=== PATIENT | female | born 1950 | race Caucasian/White ===

== ENCOUNTER → 2019-08-25 | Outpatient (CLI) | payer MEDICARE, OTHER | END | disposition home or self-care (01) | LOC: PLD 14:24 → LAB SHORT 14:24 | DX: C44.1122 Basal cell carcinoma of skin of right lower eyelid, including canthus (principal); L97.819 Non-pressure chronic ulcer of other part of right lower leg with unspecified severity | CPT/HCPCS: 88305; 88312; 88313 ==

== ENCOUNTER → 2019-08-28 | Outpatient (CLI) | payer MEDICARE, OTHER ==
[2019-08-30 09:28] LABS: Stool Occult Bld Immuno 1 Negative (NEGATIVE); Stool Occult Bld Immuno 2 Positive (NEGATIVE); Stool Occult Bld Immuno 3 Negative (NEGATIVE)
== END | disposition home or self-care (01) ==
LOC: LAB EV 15:35
PROVIDERS: Physician Assistant
DX: Z12.11 Encounter for screening for malignant neoplasm of colon (principal); Z12.12 Encounter for screening for malignant neoplasm of rectum
CPT/HCPCS: G0328

== ENCOUNTER 2019-09-15 14:04 | Emergency (ER) | payer MEDICARE, OTHER ==
[~2019-09-15] VITALS: Ht 162.6 cm; Wt 91.6 kg
== END 2019-09-15 14:54 | disposition home or self-care (01) ==
LOC: ER 14:04
DX: S01.01XA Laceration without foreign body of scalp, initial encounter (principal); W22.8XXA Striking against or struck by other objects, initial encounter; Z88.2 Allergy status to sulfonamides
CPT/HCPCS: 12001; 99283-25

== ENCOUNTER 2019-11-24 20:15 | Emergency (ER) | payer MEDICARE, OTHER ==
[~2019-11-24] VITALS: Ht 162.6 cm; Wt 93.4 kg
[2019-11-24 21:09] LABS: Hematocrit 45.8 % (33.0-51.0); Hemoglobin 15.1 g/dL (11.5-16.0); Mean Corpuscular HGB 28.9 pg (26.0-34.0); Mean Corpuscular Volume 88 fL (80-100); Mean Platelet Volume 10.3 fL (9.1-12.4); Platelet Count 207 K/mm3 (150-400); RDW Coefficient Variation 13.1 % (11.7-14.2); RDW Standard Deviation 41.8 fL (35.1-46.3); Red Blood Cell Count 5.23 M/mm3 (3.80-5.20); White Blood Cell Count 8.72 K/mm3 (4.00-11.30)
[2019-11-24 21:27] LABS: Alanine Aminotransfer (ALT/SGP 35 U/L (12-78); Albumin, Blood 3.5 g/dL (3.4-5.0); Albumin/Globulin Ratio 0.9 (0.8-1.8); Alk Phos 102 U/L (50-136); Anion Gap 7 mmol/L (6-16); Aspartate Aminotrans (AST/SGOT 28 U/L (12-37); Bilirubin, Total 0.2 mg/dL (0.1-1.0); Blood Urea Nitrogen 25 mg/dL (8-24); Bun/Creatinine Ratio 37.5 (12.0-20.0); CO2, Blood 26 mmol/L (21-32); Calcium, Blood 9.1 mg/dL (8.5-10.1); Chloride, Blood 108 mmol/L (98-108); Creatinine, Blood 0.67 mg/dL (0.40-1.00); Globulin, Blood 3.7 g/dL (2.2-4.0); Glomerular Filtration Rate >60 (60-); Glucose, Blood 88 mg/dL (70-99); Potassium, Blood 3.7 mmol/L (3.5-5.5); Sodium, Blood 141 mmol/L (136-145); Total Protein, Blood 7.2 g/dL (6.4-8.2)
[2019-11-24 21:33] LABS: BAND PERCENT MAN 1 % (0-8); BASOPHILS PERCENT MAN 0 % (0-2); EOSINOPHILS ABSOLUTE MAN 0.08 K/mm3 (0.00-0.68); EOSINOPHILS PERCENT MAN 1 % (0-6); LYMPHOCYTES ABSOLUTE MAN 3.05 K/mm3 (0.84-5.20); LYMPHOCYTES PERCENT MAN 35 % (21-46); MONOCYTES ABSOLUTE MAN 0.52 K/mm3 (0.16-1.47); MONOCYTES PERCENT MAN 6 % (4-13); NEUTROPHILS ABSOLUTE MAN 4.97 K/mm3 (1.96-9.15); OTHER CELL PERCENT MAN 1 % (0-0); SEG NEUTROPHILS PERCENT MAN 56 % (41-73); TOTAL CELLS COUNTED 100
[2019-11-24] MEDS ORDERED: CEFP200 PO (22:54)
== END 2019-11-24 23:06 | disposition home or self-care (01) ==
LOC: ER 20:15
PROVIDERS: Emergency Medicine
DX: L03.116 Cellulitis of left lower limb (principal); L03.115 Cellulitis of right lower limb
CPT/HCPCS: 36415; 80053; 85025; 99283; A9270-GY

== ENCOUNTER 2025-01-10 02:19 | Inpatient (IN) | payer MEDICARE ==
[~2025-01-10] VITALS: Ht 157.5 cm; Wt 81.9 kg
[~2025-01-10 02:19] MED LIST: CEFP200 PO
[2025-01-10 02:59] LABS: BASOPHILS ABSOLUTE AUTO 0.06 K/mm3 (0.00-0.23); BASOPHILS PERCENT AUTO 0 % (0-2); EOSINOPHILS ABSOLUTE AUTO 0.16 K/mm3 (0.00-0.68); EOSINOPHILS PERCENT AUTO 1 % (0-6); Hematocrit 48.9 % (33.0-51.0); Hemoglobin 16.5 g/dL (11.5-16.0); IMMATURE GRAN ABSOLUTE AUTO 0.12 K/mm3 (0.00-0.10); IMMATURE GRAN PERCENT AUTO 1 % (0-1); LYMPHOCYTES PERCENT AUTO 24 % (21-46); MONOCYTES ABSOLUTE AUTO 1.28 K/mm3 (0.16-1.47); MONOCYTES PERCENT AUTO 8 % (4-13); Mean Corpuscular HGB 28.9 pg (26.0-34.0); Mean Corpuscular HGB Conc 33.7 g/dL (31.5-36.5); Mean Corpuscular Volume 86 fL (80-100); Mean Platelet Volume 10.7 fL (9.1-12.4); NEUTROPHILS ABSOLUTE AUTO 10.43 K/mm3 (1.96-9.15); NEUTROPHILS PERCENT AUTO 66 % (41-73); Platelet Count 228 K/mm3 (150-400); RDW Coefficient Variation 14.2 % (11.7-14.2); RDW Standard Deviation 44.2 fL (35.1-46.3); White Blood Cell Count 15.85 K/mm3 (4.00-11.30)
[2025-01-10] MEDS ORDERED: Ondansetron HCl 2 MG / ML 2ML Vial IV ONE (03:05)
[2025-01-10] MEDS ORDERED: NS 1,000 ML IV SCH ×3 (03:35→17:00)
[2025-01-10] MEDS ORDERED: FentaNYL Citrate 50 MCG/ML 2 ML Injection IV ONE ×2 (03:35→19:30)
[2025-01-10 04:26] LABS: Alanine Aminotransfer (ALT/SGP 706 U/L (12-78); Albumin, Blood 3.6 g/dL (3.4-5.0); Albumin/Globulin Ratio 1.1 (0.8-1.8); Alk Phos 508 U/L (50-136); Anion Gap 13 mmol/L (3-11); Aspartate Aminotrans (AST/SGOT 359 U/L (12-37); Bilirubin, Total 4.8 mg/dL (0.1-1.0); Blood Urea Nitrogen 9 mg/dL (8-24); Bun/Creatinine Ratio 13.2 (12.0-20.0); CO2, Blood 21 mmol/L (21-32); Calcium, Blood 9.4 mg/dL (8.5-10.1); Chloride, Blood 110 mmol/L (98-108); Creatinine, Blood 0.68 mg/dL (0.40-1.00); Globulin, Blood 3.4 g/dL (2.2-4.0); Glomerular Filtration Rate 91 (60-); Glucose, Blood 136 mg/dL (70-99); Sodium, Blood 140 mmol/L (136-145)
[2025-01-10 04:37] LABS: Source, Urine Clean Catch
[2025-01-10 05:05] LABS: Appearance, Urine Clear (Clear); Bilirubin, Urine Neg (Neg); Blood, Urine Neg (Neg); Color, Urine Yellow (P-Yellow); Glucose Qualitative, Urine Neg (Neg); Ketones, Urine Neg (Neg); Leukocyte Esterase, Urine Neg (Neg); Nitrite, Urine Neg (Neg); Protein, Urine Neg (Neg); Urobilinogen, Urine NORM (Normal); pH, Urine 6.5 (5.0-8.0)
[2025-01-10] MEDS ORDERED: Morphine Sulfate 4 MG/1 ML Injection IV ONE ×2 (05:25→06:50)
[2025-01-10] MEDS ORDERED: Piperacillin/Tazobactam Sod 4.5 GM in NS 100 ML IV ONE (06:40)
[2025-01-10] MEDS ORDERED: HYDROmorphone HCl/Pf 1MG SYR IV ONE (09:05)
[2025-01-10] MEDS ORDERED: LORazepam 2 MG/ML 1ML Injection IV ONE (09:30)
[2025-01-10] MEDS ORDERED: LORazepam 2 MG/ML 1ML Injection ONE (12:43)
[2025-01-10] MEDS ORDERED: Piperacillin/Tazobactam Sod 2.25 GM in NS 50 ML IV ONE (14:40)
[2025-01-10 14:56] LABS: BASOPHILS ABSOLUTE AUTO 0.03 K/mm3 (0.00-0.23); BASOPHILS PERCENT AUTO 0 % (0-2); EOSINOPHILS ABSOLUTE AUTO 0.07 K/mm3 (0.00-0.68); EOSINOPHILS PERCENT AUTO 1 % (0-6); Hematocrit 45.9 % (33.0-51.0); Hemoglobin 15.2 g/dL (11.5-16.0); IMMATURE GRAN ABSOLUTE AUTO 0.07 K/mm3 (0.00-0.10); IMMATURE GRAN PERCENT AUTO 1 % (0-1); LYMPHOCYTES ABSOLUTE AUTO 2.05 K/mm3 (0.84-5.20); LYMPHOCYTES PERCENT AUTO 15 % (21-46); MONOCYTES ABSOLUTE AUTO 0.88 K/mm3 (0.16-1.47); MONOCYTES PERCENT AUTO 7 % (4-13); Mean Corpuscular HGB 29.3 pg (26.0-34.0); Mean Corpuscular HGB Conc 33.1 g/dL (31.5-36.5); Mean Corpuscular Volume 88 fL (80-100); NEUTROPHILS PERCENT AUTO 77 % (41-73); Platelet Count 203 K/mm3 (150-400); RDW Coefficient Variation 14.4 % (11.7-14.2); RDW Standard Deviation 46.8 fL (35.1-46.3); Red Blood Cell Count 5.19 M/mm3 (3.80-5.20)
[2025-01-10 15:20] LABS: Albumin, Blood 3.1 g/dL (3.4-5.0); Albumin/Globulin Ratio 0.9 (0.8-1.8); Bilirubin, Total 1.8 mg/dL (0.1-1.0); Calcium, Blood 8.8 mg/dL (8.5-10.1); Creatinine, Blood 0.75 mg/dL (0.40-1.00); Globulin, Blood 3.3 g/dL (2.2-4.0); Potassium, Blood 4.1 mmol/L (3.5-5.5); Total Protein, Blood 6.4 g/dL (6.4-8.2)
[2025-01-10] MEDS ORDERED: OxyCODONE HCL 5 MG TAB PO PRN (15:40)
[2025-01-10] MEDS ORDERED: FLU VACC TS2024-25(6MOS UP)/PF 45 MCG/0.5 ML SYRINGE IM ONE (15:40)
[2025-01-10] MEDS ORDERED: FentaNYL Citrate 50 MCG/ML 2 ML Injection IV PRN ×2 (15:40→19:30)
[2025-01-10 19:14] VITALS: BP 146/77
--- NOTE | 2025-01-11 04:44 | NUR ---
NOC SHIFT SUMMARY- PT PAIN MANAGED WELL PER JAN. PT HAS REMAINED NPO THROUGHOUT SHIFT. PT IS WALKING TO BATHROOM TO VOID. NO EVENTS REPORTED BY TEA ROOM MANAGER. CALL LIGHT IN REACH.
[2025-01-11 04:54] VITALS: BP 146/72
[2025-01-11 05:12] LABS: BASOPHILS ABSOLUTE AUTO 0.03 K/mm3 (0.00-0.23); BASOPHILS PERCENT AUTO 0 % (0-2); EOSINOPHILS ABSOLUTE AUTO 0.06 K/mm3 (0.00-0.68); EOSINOPHILS PERCENT AUTO 0 % (0-6); Hematocrit 43.1 % (33.0-51.0); Hemoglobin 13.8 g/dL (11.5-16.0); IMMATURE GRAN ABSOLUTE AUTO 0.08 K/mm3 (0.00-0.10); IMMATURE GRAN PERCENT AUTO 1 % (0-1); LYMPHOCYTES ABSOLUTE AUTO 1.41 K/mm3 (0.84-5.20); LYMPHOCYTES PERCENT AUTO 10 % (21-46); MONOCYTES ABSOLUTE AUTO 0.79 K/mm3 (0.16-1.47); MONOCYTES PERCENT AUTO 6 % (4-13); Mean Corpuscular HGB 28.9 pg (26.0-34.0); Mean Corpuscular Volume 90 fL (80-100); Mean Platelet Volume 11.1 fL (9.1-12.4); NEUTROPHILS ABSOLUTE AUTO 11.51 K/mm3 (1.96-9.15); NEUTROPHILS PERCENT AUTO 83 % (41-73); Platelet Count 158 K/mm3 (150-400); RDW Coefficient Variation 14.1 % (11.7-14.2); RDW Standard Deviation 47.3 fL (35.1-46.3); Red Blood Cell Count 4.78 M/mm3 (3.80-5.20); White Blood Cell Count 13.88 K/mm3 (4.00-11.30)
[2025-01-11 05:52] LABS: Albumin, Blood 2.8 g/dL (3.4-5.0); Albumin/Globulin Ratio 0.9 (0.8-1.8); Bilirubin, Total 1.4 mg/dL (0.1-1.0); Bun/Creatinine Ratio 12.6 (12.0-20.0); Calcium, Blood 8.3 mg/dL (8.5-10.1); Creatinine, Blood 0.63 mg/dL (0.40-1.00); Globulin, Blood 3.2 g/dL (2.2-4.0); Potassium, Blood 3.6 mmol/L (3.5-5.5)
[2025-01-11 07:15] VITALS: BP 138/69
[2025-01-11] MEDS ORDERED: Enoxaparin 40 MG/0.4 ML SYR SC SCH (09:00)
[2025-01-11] MEDS ORDERED: Piperacillin/Tazobactam Sod 3.375 GM in NS 100 ML IV SCH (11:30)
[2025-01-11 13:20] VITALS: BP 137/67
[2025-01-11 15:57] VITALS: BP 137/68
[2025-01-11] MEDS ORDERED: NS 1,000 ML IV SCH (17:05)
--- NOTE | 2025-01-11 18:18 | NUR ---
SUMMARY NO ACUTE CHANGES TO SHIFT. PT MEDICATED T/O DAY FOR ABDOMINAL PAIN PER ORDERS. CBG THIS EVENING 69, GAVE APPLEJUICE AND NOTIFIED DR CABELLO. PT SIPPING JUICE AT THIS TIME, ADVANCED TO CLEAR LIQUID DIET. CALL LIGHT IN REACH, FAMILY BEDSIDE.
[2025-01-11 19:29] VITALS: BP 140/63
[2025-01-11 23:20] VITALS: BP 126/62
[2025-01-12 03:41] VITALS: BP 130/62
--- NOTE | 2025-01-12 04:11 | NUR ---
NOC SUMMARY- PT PAIN MANAGED WELL. PT ABLE TO SLEEP. PT TOLERATING CLD. PT UP TO BATHROOM TO VOID. NO BM NOTED THIS SHIFT. CALL LIGHT IN REACH.
[2025-01-12 05:32] LABS: BASOPHILS ABSOLUTE AUTO 0.03 K/mm3 (0.00-0.23); BASOPHILS PERCENT AUTO 0 % (0-2); EOSINOPHILS ABSOLUTE AUTO 0.12 K/mm3 (0.00-0.68); EOSINOPHILS PERCENT AUTO 1 % (0-6); Hematocrit 36.4 % (33.0-51.0); Hemoglobin 12.2 g/dL (11.5-16.0); IMMATURE GRAN ABSOLUTE AUTO 0.12 K/mm3 (0.00-0.10); IMMATURE GRAN PERCENT AUTO 1 % (0-1); LYMPHOCYTES ABSOLUTE AUTO 1.27 K/mm3 (0.84-5.20); LYMPHOCYTES PERCENT AUTO 8 % (21-46); MONOCYTES ABSOLUTE AUTO 0.81 K/mm3 (0.16-1.47); MONOCYTES PERCENT AUTO 5 % (4-13); Mean Corpuscular HGB 29.5 pg (26.0-34.0); Mean Corpuscular HGB Conc 33.5 g/dL (31.5-36.5); Mean Corpuscular Volume 88 fL (80-100); Mean Platelet Volume 11.3 fL (9.1-12.4); NEUTROPHILS ABSOLUTE AUTO 12.78 K/mm3 (1.96-9.15); NEUTROPHILS PERCENT AUTO 84 % (41-73); Platelet Count 139 K/mm3 (150-400); RDW Coefficient Variation 13.6 % (11.7-14.2); RDW Standard Deviation 44.6 fL (35.1-46.3); Red Blood Cell Count 4.13 M/mm3 (3.80-5.20); White Blood Cell Count 15.13 K/mm3 (4.00-11.30)
[2025-01-12 06:22] LABS: Albumin, Blood 2.4 g/dL (3.4-5.0); Albumin/Globulin Ratio 0.8 (0.8-1.8); Bilirubin, Total 1.4 mg/dL (0.1-1.0); Bun/Creatinine Ratio 14.5 (12.0-20.0); Creatinine, Blood 0.55 mg/dL (0.40-1.00); Globulin, Blood 3.1 g/dL (2.2-4.0); Potassium, Blood 3.2 mmol/L (3.5-5.5); Total Protein, Blood 5.5 g/dL (6.4-8.2)
[2025-01-12 07:19] VITALS: BP 120/64
[2025-01-12 10:29] VITALS: BP 129/67
[2025-01-12] MEDS ORDERED: LATA.005SO BOTHEYES (12:37)
[2025-01-12] MEDS ORDERED: Potassium Chloride 20 MEQ in NS 90 ML IV ONE (12:50)
--- NOTE | 2025-01-12 15:06 | NUR ---
PTS PAIN MANAGED WELL PER MAR. PT IS ON A CLEAR LIQUID DIET. BLOOD SUGARS HAVE BEEN WITHIN NORMAL RANGE AFTER BEING TAKEN OFF NPO. PT AMBULATES TO RESTROOM TO VOID WITH STANDBYE ASSISTANCE. PT DID SAY HER IV WAS BURNING, SO WE SLOWED THE INFUSION OF K+. SEARCHING FOR OUTSIDE HOSPITALS TO TRANSFER PT TO IN ORDER TO HAVE THE ERCP PROCEDURE DONE BY A OFFICE PROFESSIONALS. CALL LIGHT WITHIN REACH.
[2025-01-12 16:56] VITALS: BP 133/62
--- NOTE | 2025-01-12 17:29 | NUR ---
SUMMARY NO ACUTE CHANGES T/O SHIFT. MEDICATED PT PER ORDERS FOR PAIN T/O DAY. PT HAS DENIED NAUSEA. TOLERATING SIPS OF CLEARS. AWAITING TRANSFER TO HIGHER LEVEL OF CARE FOR ERCP. FAMILY MEMBER BEDSIDE. CALL LIGHT IN REACH.
[2025-01-12 19:12] VITALS: BP 117/57
[2025-01-12] MEDS ORDERED: OxyCODONE HCL 5 MG TAB PO PRN (23:35)
[2025-01-12 23:56] VITALS: BP 127/62
[2025-01-13 02:58] VITALS: BP 147/70
[2025-01-13 04:24] LABS: BASOPHILS ABSOLUTE AUTO 0.03 K/mm3 (0.00-0.23); BASOPHILS PERCENT AUTO 0 % (0-2); EOSINOPHILS ABSOLUTE AUTO 0.15 K/mm3 (0.00-0.68); EOSINOPHILS PERCENT AUTO 1 % (0-6); Hematocrit 35.5 % (33.0-51.0); Hemoglobin 12.1 g/dL (11.5-16.0); IMMATURE GRAN ABSOLUTE AUTO 0.09 K/mm3 (0.00-0.10); IMMATURE GRAN PERCENT AUTO 1 % (0-1); LYMPHOCYTES PERCENT AUTO 13 % (21-46); MONOCYTES ABSOLUTE AUTO 0.78 K/mm3 (0.16-1.47); MONOCYTES PERCENT AUTO 7 % (4-13); Mean Corpuscular HGB 29.6 pg (26.0-34.0); Mean Corpuscular HGB Conc 34.1 g/dL (31.5-36.5); Mean Corpuscular Volume 87 fL (80-100); Mean Platelet Volume 10.6 fL (9.1-12.4); NEUTROPHILS ABSOLUTE AUTO 9.43 K/mm3 (1.96-9.15); NEUTROPHILS PERCENT AUTO 79 % (41-73); Platelet Count 134 K/mm3 (150-400); RDW Coefficient Variation 13.4 % (11.7-14.2); Red Blood Cell Count 4.09 M/mm3 (3.80-5.20); White Blood Cell Count 11.98 K/mm3 (4.00-11.30)
[2025-01-13 04:59] LABS: Albumin, Blood 2.2 g/dL (3.4-5.0); Albumin/Globulin Ratio 0.6 (0.8-1.8); Bilirubin, Total 1.1 mg/dL (0.1-1.0); Bun/Creatinine Ratio 11.1 (12.0-20.0); Calcium, Blood 8.5 mg/dL (8.5-10.1); Creatinine, Blood 0.54 mg/dL (0.40-1.00); Globulin, Blood 3.4 g/dL (2.2-4.0); Potassium, Blood 3.3 mmol/L (3.5-5.5); Total Protein, Blood 5.6 g/dL (6.4-8.2)
--- NOTE | 2025-01-13 05:56 | NUR ---
NOC SUMMARY- PAIN MANAGED WELL PER MAR. PT HAS BEEN ABLE TO REST THIS SHIFT. PT UP TO USE BATHROOM. PT TOLERATING CLD. PT CURRENTLY SLEEPING IN NO DISTRESS, PT TURNS SELF IN BED. CALL LIGHT IN REACH.
--- NOTE | 2025-01-13 06:39 | NUR ---
TRANSFER UPDATE: CALL PLACED TO [facility] FOR UPDATE ON BED AVAILABLITY. PER JHONATHAN, NO BEDS AVAILABLE. PT TO REMAIN ON TX LIST. [facility] CALLED, PT PLACED ON TX LIST, NO CURRENT BEDS AVAILABLE. TX CENTER TO CALL IF BED BECOMES AVAILABLE.
[2025-01-13 07:30] VITALS: BP 142/75
--- NOTE | 2025-01-13 10:57 | NUR ---
RECIEVED CALL FROM [place] CONFIRMING PT NEED FOR TX. TX COORDINATOR STATES STILL ANTICIPATING 48 HRS BUT IF PTS CONDITION CHANGES TO NOTIFY THEM.
[2025-01-13] MEDS ORDERED: Potassium Chloride 20 MEQ TabCR PO ONE (13:35)
--- NOTE | 2025-01-13 14:36 | NUR ---
PT C/O PAIN 05/27, PT EDUCATED ON ORAL VS IV PAIN MEDICATION. PT REQUESTING TO CONTINUE WITH IV PAIN MGMT AT THIS TIME. MEDICATED PER EMAR. PT ALSO FRUSTRATED THAT SHE WAS GIVEN CLEAR LIQUIDS FOR LUNCH RATHER THAN FULL. PT GIVEN CREAM OF WHEAT AND EDUCATED ON STARTING SLOW AND TO CALL IF ANY N/V. PT VERBALIZED UNDERSTANDING.
[2025-01-13 15:39] VITALS: BP 131/74
[2025-01-13 19:29] VITALS: BP 127/72
--- NOTE | 2025-01-13 19:38 | NUR ---
SUMMARY: NO ACUTE CHANGE TODAY. VSS, A/O. IV ANTIBIOTICS INFUSED, MEDICATED PER EMAR FOR PAIN. PT ABLE TO TOLERATE FULL LIQUIDS TONIGHT. NO ACUTE CONCERNS. STILL AWAITING BED PLACEMENT FOR ERCP. PT USES CALL LIGHT TO MAKE NEEDS KNOWN
--- NOTE | 2025-01-13 22:36 | NUR ---
[facility] CALLED TO CONFIRM PT [facility] ON TX LIST. NO BEDS CURRENTLY AVAILABLE.
[2025-01-14 04:05] VITALS: BP 143/76
[2025-01-14 05:22] LABS: BASOPHILS ABSOLUTE AUTO 0.03 K/mm3 (0.00-0.23); BASOPHILS PERCENT AUTO 0 % (0-2); EOSINOPHILS ABSOLUTE AUTO 0.17 K/mm3 (0.00-0.68); EOSINOPHILS PERCENT AUTO 2 % (0-6); Hematocrit 35.9 % (33.0-51.0); Hemoglobin 12.4 g/dL (11.5-16.0); IMMATURE GRAN ABSOLUTE AUTO 0.07 K/mm3 (0.00-0.10); IMMATURE GRAN PERCENT AUTO 1 % (0-1); LYMPHOCYTES ABSOLUTE AUTO 1.53 K/mm3 (0.84-5.20); LYMPHOCYTES PERCENT AUTO 15 % (21-46); MONOCYTES ABSOLUTE AUTO 0.69 K/mm3 (0.16-1.47); MONOCYTES PERCENT AUTO 7 % (4-13); Mean Corpuscular HGB 29.6 pg (26.0-34.0); Mean Corpuscular HGB Conc 34.5 g/dL (31.5-36.5); Mean Corpuscular Volume 86 fL (80-100); NEUTROPHILS ABSOLUTE AUTO 7.88 K/mm3 (1.96-9.15); NEUTROPHILS PERCENT AUTO 76 % (41-73); Platelet Count 169 K/mm3 (150-400); RDW Coefficient Variation 13.3 % (11.7-14.2); RDW Standard Deviation 41.8 fL (35.1-46.3); Red Blood Cell Count 4.19 M/mm3 (3.80-5.20); White Blood Cell Count 10.37 K/mm3 (4.00-11.30)
--- NOTE | 2025-01-14 05:26 | NUR ---
NOC SUMMARY- PT PAIN MANAGED WELL. PT HAS BEEN RESTING COMFORTABLY. PT WAS ABLE TO SLEEP THIS SHIFT. PT HAS BEEN VOIDING AND TOLERATING PO. PT DENIES ANY N/V. PT CURRENTLY SLEEPING IN NO DISCOMFORT. CALL LIGHT IN REACH.
[2025-01-14 05:51] LABS: Albumin, Blood 2.2 g/dL (3.4-5.0); Albumin/Globulin Ratio 0.6 (0.8-1.8); Bilirubin, Total 1.1 mg/dL (0.1-1.0); Bun/Creatinine Ratio 8.4 (12.0-20.0); Calcium, Blood 8.4 mg/dL (8.5-10.1); Creatinine, Blood 0.6 mg/dL (0.40-1.00); Globulin, Blood 3.4 g/dL (2.2-4.0); Potassium, Blood 3.3 mmol/L (3.5-5.5); Total Protein, Blood 5.6 g/dL (6.4-8.2)
[2025-01-14 07:11] VITALS: BP 144/74
[2025-01-14] MEDS ORDERED: Potassium Chloride 20 MEQ TabCR PO ONE (09:25)
[2025-01-14 14:29] VITALS: BP 123/59
--- NOTE | 2025-01-14 19:17 | NUR ---
SHIFT SUMMARY THIS RN ASSUMED CARE AT APPROX 0715. PATIENT ALERT AND ORIENTED X4. INDEPENDENT IN ROOM - AMBULATING IN HALLWAY. VSS. SBP 120s-140s. MAP >65. DENIES CHEST PAIN, PRESSURE. TELEMETRY SHOWING SINUS 70s PRIOR TO REMOVAL PER MD ORDER. ON ROOM AIR, SATs >90%. RR EVEN, UNLABORED. TOLERATING FULL LIQUID DIET. REPORTS FLATULENCE. X1 EPISODE OF LOOSE STOOL THIS EVENING. NPO AT MIDNIGHT FOR POSSIBLE CHOLECTOMY TOMORROW UNLESS PLACEMENT RECEIVED FOR ERCP. MANAGING PAIN PER EMAR. VOIDING. CALL LIGHT IN REACH.
[2025-01-14 19:39] VITALS: BP 142/91
[2025-01-15] VITALS (20 sets, daily range): BP systolic 91–160; BP diastolic 51–88
[2025-01-15] MEDS ORDERED: Ondansetron HCl 2 MG / ML 2ML Vial IV PRN (02:20)
--- NOTE | 2025-01-15 04:35 | NUR ---
SHIFT SUMMARY ALESSANDRO WAS ALERT AND FULLY ORIENTED ON ASSESMENT. PT C/O MODERATE PAIN TO ABD, AND ONE BOUT OF SIGNIFICANT NAUSEA WITHOUT VOMITING. MEDICATED PER EMAR. PT ABLE TO AMBULATE INDPENDENTLY. PT STATES THAT SHE HAD ONE BOUT OF DIARRHEA ON DAY SHIFT. PT KEPT NPO FROM MIDNIGHT. NO BED PLACEMENT FOR ERCP. POSSIBLE SURGERY ON DAYSHIFT. NO OTHER ACUTE EVENTS OR NOTED CHANGES TO PT CONDITION.
[2025-01-15 06:03] LABS: BASOPHILS ABSOLUTE AUTO 0.04 K/mm3 (0.00-0.23); BASOPHILS PERCENT AUTO 0 % (0-2); EOSINOPHILS ABSOLUTE AUTO 0.16 K/mm3 (0.00-0.68); EOSINOPHILS PERCENT AUTO 1 % (0-6); Hematocrit 38.8 % (33.0-51.0); Hemoglobin 13.4 g/dL (11.5-16.0); IMMATURE GRAN ABSOLUTE AUTO 0.09 K/mm3 (0.00-0.10); IMMATURE GRAN PERCENT AUTO 1 % (0-1); LYMPHOCYTES ABSOLUTE AUTO 1.58 K/mm3 (0.84-5.20); LYMPHOCYTES PERCENT AUTO 13 % (21-46); MONOCYTES ABSOLUTE AUTO 0.83 K/mm3 (0.16-1.47); MONOCYTES PERCENT AUTO 7 % (4-13); Mean Corpuscular HGB 29.5 pg (26.0-34.0); Mean Corpuscular HGB Conc 34.5 g/dL (31.5-36.5); Mean Corpuscular Volume 85 fL (80-100); NEUTROPHILS ABSOLUTE AUTO 9.06 K/mm3 (1.96-9.15); NEUTROPHILS PERCENT AUTO 77 % (41-73); Platelet Count 193 K/mm3 (150-400); RDW Coefficient Variation 13.2 % (11.7-14.2); RDW Standard Deviation 41.7 fL (35.1-46.3); Red Blood Cell Count 4.55 M/mm3 (3.80-5.20); White Blood Cell Count 11.76 K/mm3 (4.00-11.30)
[2025-01-15 07:01] LABS: Albumin, Blood 2.4 g/dL (3.4-5.0); Albumin/Globulin Ratio 0.6 (0.8-1.8); Bilirubin, Total 1.2 mg/dL (0.1-1.0); Bun/Creatinine Ratio 6.8 (12.0-20.0); Calcium, Blood 8.9 mg/dL (8.5-10.1); Creatinine, Blood 0.59 mg/dL (0.40-1.00); Globulin, Blood 3.7 g/dL (2.2-4.0); Potassium, Blood 3.4 mmol/L (3.5-5.5); Total Protein, Blood 6.1 g/dL (6.4-8.2)
[2025-01-15] MEDS ORDERED: Potassium Chloride 20 MEQ TabCR PO ONE (07:35)
[2025-01-15] MEDS ORDERED: Indocyanine Green 25 MG Vial IV ONE ×2 (07:40→14:00)
[2025-01-15] MEDS ORDERED: D5W-1/2NS 1,000 ML IV SCH (12:40)
[2025-01-15] MEDS ORDERED: Lactated Ringer's 1,000 ML IV SCH (14:30)
--- NOTE | 2025-01-15 15:30 | NUR ---
INTO SDS [facility]IA [employer]. PT DENIES PAIN OF SOB. HISTORY AND ALLERGIES REVIEWED. LUNGS CLEAR. SATS>90% ON RA. NPO STATUS CONFIRMED.
--- NOTE | 2025-01-15 16:21 | NUR ---
PT TO OR AT ABOUT 1500
[2025-01-15] MEDS ORDERED: Bupivacaine 0.5% HCl 5 MG/ML 30MLVIAL ONE (16:28)
[2025-01-15] MEDS ORDERED: Rocuronium Bromide 10 MG/ML 5ML Injection IV ONE ×3 (16:35→17:56)
[2025-01-15] MEDS ORDERED: Ondansetron HCl 2 MG / ML 2ML Vial ONE (16:35)
[2025-01-15] MEDS ORDERED: propofoL 20 ML IV ONE (16:35)
[2025-01-15] MEDS ORDERED: Dexamethasone Sod Phos 10 MG/ML 1ML VIAL ONE (16:35)
[2025-01-15] MEDS ORDERED: FentaNYL Citrate 50 MCG/ML 2 ML Injection ONE ×2 (16:36→19:30)
[2025-01-15] MEDS ORDERED: Sugammadex Sodium 200 MG/2ML SDV (100 MG/ML) ONE (16:43)
[2025-01-15] MEDS ORDERED: HYDROmorphone HCl 0.5 MG/0.5 ML SYR ONE (19:44)
[2025-01-16 03:56] VITALS: BP 142/82
--- NOTE | 2025-01-16 05:50 | NUR ---
SHIFT SUMMARY ALESSANDRO WAS ALERT AND FULLY ORIENTED, BUT CONFUSED AND SLOW AT WHEN SHE RETURNED FROM PACU EARLY THIS SHIFT. MENTATION IMPROVED T/O NIGHT. PAIN WELL CONTROLLED AT THIS TIME. PT VOIDING APPROPTIATELY. LAP SITES C/D/I, ELO OUTPUTTING MODERATE S/S. NO ACUTE EVENTS TONIGHT.
[2025-01-16 06:09] LABS: BASOPHILS ABSOLUTE AUTO 0.04 K/mm3 (0.00-0.23); BASOPHILS PERCENT AUTO 0 % (0-2); EOSINOPHILS PERCENT AUTO 0 % (0-6); Hematocrit 37.1 % (33.0-51.0); Hemoglobin 12.7 g/dL (11.5-16.0); IMMATURE GRAN ABSOLUTE AUTO 0.13 K/mm3 (0.00-0.10); IMMATURE GRAN PERCENT AUTO 1 % (0-1); LYMPHOCYTES PERCENT AUTO 9 % (21-46); MONOCYTES ABSOLUTE AUTO 0.55 K/mm3 (0.16-1.47); MONOCYTES PERCENT AUTO 4 % (4-13); Mean Corpuscular HGB 29.4 pg (26.0-34.0); Mean Corpuscular HGB Conc 34.2 g/dL (31.5-36.5); Mean Corpuscular Volume 86 fL (80-100); Mean Platelet Volume 10.9 fL (9.1-12.4); NEUTROPHILS ABSOLUTE AUTO 11.52 K/mm3 (1.96-9.15); NEUTROPHILS PERCENT AUTO 86 % (41-73); Platelet Count 229 K/mm3 (150-400); RDW Coefficient Variation 13.2 % (11.7-14.2); RDW Standard Deviation 41.6 fL (35.1-46.3); Red Blood Cell Count 4.32 M/mm3 (3.80-5.20); White Blood Cell Count 13.44 K/mm3 (4.00-11.30)
[2025-01-16 06:50] LABS: Albumin, Blood 2.3 g/dL (3.4-5.0); Albumin/Globulin Ratio 0.7 (0.8-1.8); Bilirubin, Total 0.8 mg/dL (0.1-1.0); Bun/Creatinine Ratio 10.5 (12.0-20.0); Calcium, Blood 8.6 mg/dL (8.5-10.1); Creatinine, Blood 0.57 mg/dL (0.40-1.00); Globulin, Blood 3.4 g/dL (2.2-4.0); Potassium, Blood 3.8 mmol/L (3.5-5.5); Total Protein, Blood 5.7 g/dL (6.4-8.2)
[2025-01-16 07:42] VITALS: BP 129/73
[2025-01-16] MEDS ORDERED: Acetaminophen 325 MG TABLET PO PRN (10:55)
[2025-01-16] MEDS ORDERED: OXYC5 PO (13:43)
[2025-01-16] MEDS ORDERED: VISBIOME 112.51 EACH PO (13:44)
[2025-01-16] MEDS ORDERED: AMOCLA875 PO (13:44)
[2025-01-16 15:31] VITALS: BP 119/70
--- NOTE | 2025-01-16 16:46 | NUR ---
DISCHARGE PT PROVIDED WITH WRITTEN AND VERBAL DISCHARGE INSTRUCTIONS; SHE REPORTED UNDERSTANDING. PT EDUCATED TO MONITOR/EMPTY ELO DRAIN. DRAIN RECORD PROVIDED. PT ABLE TO TOLERAT PO, PAIN MANAGED, ABLE TO AMBULATE AND PASS FLATUS PRIOR TO DISCHARGE. VSS. PT ASSISTED OUT IN W/C AT 1616.
== END 2025-01-16 16:16 | disposition home or self-care (01) | DRG 417 ==
LOC: ER 02:19 → SURS 15:37
PROVIDERS: Emergency Medicine; Family Medicine; Student in an Organized Health Care Education/Training Program; Surgery; ADMIT Internal Medicine
PROC: BF12YZZ Fluoroscopy of Gallbladder using Other Contrast (ICD-10-PCS; 2025-01-15)
PROC: 8E0W4CZ Robotic Assisted Procedure of Trunk Region, Percutaneous Endoscopic Approach (ICD-10-PCS; 2025-01-15)
PROC: 0FT44ZZ Resection of Gallbladder, Percutaneous Endoscopic Approach (ICD-10-PCS; principal; 2025-01-15 16:00)
DX: K80.21 Calculus of gallbladder without cholecystitis with obstruction (principal); K85.10 Biliary acute pancreatitis without necrosis or infection; Q44.1 Other congenital malformations of gallbladder; K76.0 Fatty (change of) liver, not elsewhere classified; E66.9 Obesity, unspecified; F41.9 Anxiety disorder, unspecified; F32.9 Major depressive disorder, single episode, unspecified; M19.90 Unspecified osteoarthritis, unspecified site; E87.6 Hypokalemia; E16.2 Hypoglycemia, unspecified; Z88.2 Allergy status to sulfonamides; Z88.8 Allergy status to other drugs, medicaments and biological substances; Z68.32 Body mass index [BMI] 32.0-32.9, adult
CPT/HCPCS: 36415; 74177; 74181; 74300; 80053; 81003; 82947; 83690; 85025; 93005; 93010; 96361; 96365-59; 96366; 96375; 96376; 99285-25; A9270; C1894; J1100; J1171; J1650; J2060; J2270; J2405; J2543; J2704; J3010; J3480; J7030; J7042; J7120; Q9967